=== PATIENT | male | born 1955 | race Caucasian/White ===

== ENCOUNTER → 2016-12-03 | Outpatient (CLI) | payer MEDICAID ==
--- NOTE | 2016-12-03 20:58 | MR ---
EXAMINATION TYPE: MR lspine/sacrum wo con DATE OF EXAM: 12/03/2016 COMPARISON: CT abdomen pelvis 02/26/2016 HISTORY: Herniated disc, back pain TECHNIQUE: Multiplanar, multisequence imaging of the lumbar spine and sacrum is performed without IV contrast. FINDINGS: Lumbar vertebral bodies show preserved height. There is multilevel spondylosis, endplate di scogenic marrow signal change. Loss of disc height and signal is greatest at L5-S1 but also present t o lesser extent L4-5, L3-4. The conus is at L1-2 and shows an unremarkable appearance. Grade 1 raven listhesis present at L4-5. Mild spinal curvature is noted centered at lumbosacral junction. Small cor tical cysts associated with the right kidney. There may be a parapelvic cyst within the left kidney. L5-S1: Facet arthropathy changes present. Circumferential extension of endplate disc complex results in foraminal encroachment greater on the left. Small central posterior disc bulge causes mild anterio r mass effect on the thecal sac. Vacuum disc phenomenon present. Somewhat asymmetric appearance to th e lamina is likely congenital. L4-5: Listhesis contributes to cause some foraminal encroachment which is mild. Facet arthropathy david nges present with hypertrophy of the ligamentum flavum encroaches somewhat on the right lateral reces s. Posterior broad-based disc bulge causes only slight anterior mass effect on the thecal sac. Some i ncreased signal at the lateral aspect of the disc at L4-5 could represent a small annular tear latera lly towards the left. L3-4: Facet arthropathy change and hypertrophy of the ligamentum flavum encroaches mildly on the late ral recesses. Circumferential posterior disc bulge causes only minimal anterior mass effect on the th ecal sac. No significant central stenosis. L2-3: Posterior broad-based disc bulge causes minimal anterior mass effect on the thecal sac. Facet a rthropathy change with hypertrophy of the ligamentum flavum encroaches somewhat on the lateral recess es. No significant central stenosis. L1-2: Mild facet arthropathy changes present. No disc herniation or central stenosis. T12-L1: Unremarkable. IMPRESSION: Degenerative disc disease and facet arthropathy. Additional findings above. Sacrum MRI: Bone marrow signal is maintained. Alignment is maintained. No significant canal stenosis. Degenerative disc changes noted at the lower lumbar spine, lumbosacral junction. The prostate is enl arged and shows an inferior impression on the bladder. Bladder shows a somewhat thickened, trabeculat ed appearance possibly due to chronic bladder outlet obstruction. Wall thickening within the rectosig moid colon could be due to muscular hypertrophy. Sacroiliac joints are intact, no significant degener ative changes evident. impression: Nonspecific findings described above. Degenerative disc disease. Suspect prostate hypertr ophy and chronic lateral outlet obstruction.
== END ==
LOC: RADMRIMAIN 15:27
PROVIDERS: ATTEND Internal Medicine
DX: M51.36 Other intervertebral disc degeneration, lumbar region (principal); M46.86 Other specified inflammatory spondylopathies, lumbar region
CPT/HCPCS: 72148; 72195

== ENCOUNTER 2017-02-04 20:08 | Emergency (ER) | payer MEDICAID ==
[2017-02-04 20:14] VITALS: BP 112/78; PULSE 76; RESP 18; TEMP 97
--- NOTE | 2017-02-04 20:41 | ED ---
Upper Extremity HPI - General Chief Complaint: Extremity Injury, Upper Stated Complaint: Fall-Wrist Injury Time Seen by Provider: 02/04/17 20:18 Source: patient Mode of arrival: ambulatory Limitations: no limitations - History of Present Illness Initial Comments: This 61-year-old white male presents with a complaint of right hand and wrist injury as well as a left hamstring injury. He states that he was playing tennis. He apparently went for the ball and pulled his left hamstring and then fell to the ground. He broke his fall with his right hand. He now has pain over his lateral metacarpals of his right hand. This occurred shortly prior to arrival. It is causing him some mild pain. He has some mild pain with movement of his wrist as well. He denies any other injuries. He is able to ambulate and bear weight without severe difficulty. No other complaints or modifying factors. - Related Data Home Medications Medication Instructions Recorded Confirmed No Known Home Medications [No 11/09/14 02/04/17 Known Home Medications] Allergies Allergy/AdvReac Type Severity Reaction Status Date / Time No Known Allergies Allergy Verified 02/04/17 20:28 Review of Systems ROS Statement: Those systems with pertinent positive or pertinent negative responses have been documented in the HPI. ROS Other: All systems not noted in ROS Statement are negative. Past Medical History Past Medical History: No Reported History History of Any Multi-Drug Resistant Organisms: None Reported Past Surgical History: Orthopedic Surgery Additional Past Surgical History / Comment(s): parathroidectomy, trigger finger release,r wrist surgery Past Anesthesia/Blood Transfusion Reactions: No Reported Reaction Past Psychological History: No Psychological Hx Reported Smoking Status: Never smoker Past Alcohol Use History: None Reported Past Drug Use History: None Reported General Exam Limitations: no limitations General appearance: alert, in no apparent distress Extremities exam: Present: tenderness (there is tenderness over the lateral right 3 metacarpals. There is mild swelling noted without any significant ecchymosis. There is some pain with extremes of motion of the right wrist. Strength is somewhat limited due to pain.), other (there also is some tenderness noted to the left hamstring. He is able to ambulate without any significant difficulty. Strength appears intact to lower extremities.). Absent : joint swelling Neurological exam: Present: alert, oriented X3. Absent: motor sensory deficit Psychiatric exam: Present: normal affect, normal mood Skin exam: Present: intact. Absent: rash Course Vital Signs 11/14/17 20:12 Temperature 97 F L Pulse Rate 76 Respiratory 18 Rate Blood Pressure 112/78 O2 Sat by Pulse 98 Oximetry Medical Decision Making - Medical Decision Making the patient was seen and examined. All diagnostics were reviewed.The patient had an x-ray of his right hand and right wrist. This does show a right fifth carpometacarpal dislocation. The case was discussed with Dr. Jose Kay and he does present to the ER to evaluate the patient. He did obtain another view and agrees with the diagnosis and reduces his right fifth metacarpal. He places him in a splint and is subsequently discharged. Is also felt as though he does have a left hamstring strain but this does not appear to be severe and is able to ambulate without any difficulty. He refuses any pain medications. He does not want any discharge instructions. He states that he will take some Motrin if needed for pain. He apparently will be following up with orthopedics in 2 days for recheck. Disposition Clinical Impression: Dislocation of metacarpal joint, Hamstring strain Disposition: HOME SELF-CARE Condition: Good Referrals: Jocelin Menezes MD [Primary Care Provider] - 1-2 days Time of Disposition: 21:50
--- NOTE | 2017-02-04 20:42 | XR ---
EXAMINATION TYPE: XR hand complete RT DATE OF EXAM: 02/04/2017 COMPARISON: NONE HISTORY: Pain after a fall TECHNIQUE: 3 views FINDINGS: On the lateral view of the fifth metacarpal appears anteriorly dislocated at the carpometac arpal joint. I see no fracture line. IMPRESSION: There appears to be an anterior dislocation of the fifth carpometacarpal joint. Mild oste oarthritis is noted at the first carpometacarpal joint.
--- NOTE | 2017-02-04 20:44 | XR ---
EXAMINATION TYPE: XR wrist complete RT DATE OF EXAM: 02/04/2017 COMPARISON: NONE HISTORY: Pain after a fall TECHNIQUE: 4 views FINDINGS: On the lateral view the base of the fifth metacarpal appears to be in somewhat anterior pos ition. I see no fracture line. There is spurring at the first carpometacarpal joint. The carpal bones appear intact. IMPRESSION: Possible anterior dislocation of the fifth carpometacarpal joint.
--- NOTE | 2017-02-04 21:43 | XR ---
EXAMINATION TYPE: XR hand complete RT DATE OF EXAM: 02/04/2017 COMPARISON: Today HISTORY: Postreduction TECHNIQUE: 3 views FINDINGS: I see no fracture nor dislocation. There is anatomic reduction of the fifth carpometacarpal joint compared to the previous exam. IMPRESSION: Anatomic reduction.
== END 2017-02-04 21:57 | disposition home or self-care (01) ==
LOC: EC 20:08
DX: S63.054A Dislocation of other carpometacarpal joint of right hand, initial encounter (principal); S76.312A Strain of muscle, fascia and tendon of the posterior muscle group at thigh level, left thigh, initial encounter; W18.39XA Other fall on same level, initial encounter; X50.9XXA Other and unspecified overexertion or strenuous movements or postures, initial encounter; Y93.73 Activity, racquet and hand sports
CPT/HCPCS: 29125; 99283

== ENCOUNTER → 2018-05-04 | Outpatient (CLI) | payer MEDICAID ==
[2018-05-04 13:03] LABS: Basophils % (A) 0 %; Eosinophils # (A) 0.1 k/uL (0-0.7); Eosinophils % (A) 1 %; HCT 46.3 % (39.0-53.0); HGB 15.7 gm/dL (13.0-17.5); Lymphocytes # (A) 2.7 k/uL (1.0-4.8); Lymphocytes % (A) 44 %; MCH 32.1 pg (25.0-35.0); MCHC 33.9 g/dL (31.0-37.0); MCV 94.8 fL (80.0-100.0); Monocytes # (A) 0.4 k/uL (0-1.0); Monocytes % (A) 7 %; Neutrophils # (A) 2.8 k/uL (1.3-7.7); Neutrophils % (A) 46 %; Platelet Count 211 k/uL (150-450); RBC 4.88 m/uL (4.30-5.90); RDW 12.3 % (11.5-15.5); WBC 6.1 k/uL (3.8-10.6)
[2018-05-04 14:07] LABS: Erythrocyte Sedimentation Rate 2 mm/hr (0-15)
[2018-05-04 20:11] LABS: Vitamin D 25 Hydroxy 15.6 ng/mL (30.0-100.0)
[2018-05-04 22:11] LABS: Albumin 4.7 g/dL (3.80-4.90); Albumin/Globulin Ratio 1.96 (1.60-3.17); Anion Gap 9.7 mmol/L (4.00-12.00); Calcium 9.8 mg/dL (8.7-10.3); Carbon Dioxide 29.3 mmol/L (21.6-31.8); Globulin 2.4 g/dL (1.6-3.3); Phosphorus 4.1 mg/dL (2.4-5.1); Potassium 4.3 mmol/L (3.5-5.5); Total Bilirubin 0.7 mg/dL (0.3-1.2); Total Protein 7.1 g/dL (6.2-8.2)
[2018-05-04 22:19] LABS: T4, Free (Free Thyroxine) 1.3 ng/dL (0.80-1.80)
[2018-05-04 22:54] LABS: Hemoglobin A1C 5.2 % (4.0-6.0)
== END | disposition home or self-care (01) ==
LOC: LABWHC1 12:00
PROVIDERS: ATTEND Internal Medicine
DX: Z00.00 Encounter for general adult medical examination without abnormal findings (principal); R53.83 Other fatigue; R53.81 Other malaise; R63.5 Abnormal weight gain; R21 Rash and other nonspecific skin eruption; M25.50 Pain in unspecified joint; Z12.5 Encounter for screening for malignant neoplasm of prostate
CPT/HCPCS: 84439; 80061; 80053; 85652; 80069; 84443; 85025; 86141; 82306; 86038; 84403; 83036; 36415; G0103; 86431

== ENCOUNTER → 2018-08-05 | Outpatient (CLI) | payer MEDICAID ==
--- NOTE | 2018-08-05 16:37 | CT ---
EXAMINATION TYPE: CT brain w con DATE OF EXAM: 08/05/2018 COMPARISON: None. HISTORY: Contusion RT side caodaism. Pt tripped Friday, hitting head and experienced some LOC. Sx heada ariel since event. CT DLP: 1147 mGycm Automated Exposure Control for Dose Reduction was Utilized. TECHNIQUE: CT scan of the head is performed with IV contrast patient injected with 100 mL of Isovue 3 00. FINDINGS: The ventricles and sulci are within normal limits in size. Postcontrast images show no sprague spicious enhancing intraparenchymal mass. Julio-white matter differentiation is maintained. The globes are intact and the visualized sinuses are clear. The calvarium is intact. IMPRESSION: Unremarkable study.
== END ==
LOC: RADCTMAIN 15:19
PROVIDERS: ATTEND Internal Medicine Critical Care Medicine
DX: S00.93XA Contusion of unspecified part of head, initial encounter (principal)
CPT/HCPCS: 70460; Q9967

== ENCOUNTER → 2019-01-13 | Outpatient (CLI) | payer MEDICAID ==
--- NOTE | 2019-01-13 16:33 | CT ---
EXAMINATION TYPE: CT abdomen pelvis wo con DATE OF EXAM: 01/13/2019 HISTORY: right flank pain, hx of stones CT DLP: 928 mGycm. Automated Exposure Control for Dose Reduction was Utilized. TECHNIQUE: CT scan of the abdomen and pelvis is performed without oral or IV contrast. COMPARISON: CT abdomen and pelvis February 26, 2016 FINDINGS: Within the limitations of a non-contrast study, the following observations are made. LUNG BASES: No significant abnormality is appreciated. LIVER/GB: No significant abnormality is appreciated. PANCREAS: No significant abnormality is seen. SPLEEN: No significant abnormality is seen. ADRENALS: No significant abnormality is seen. KIDNEYS: Single 1 to 2 mm calculus right kidney axial image 38 operative midpole level. There is 2 to 3 mm obstructing proximal right ureter calculus axial image 63 and coronal image 42 causing mild rig ht-sided hydronephrosis. No left-sided renal calculi or hydronephrosis. No intraluminal calculi poorl y distended bladder. [id number] concentric wall thickening thought present. BOWEL: No significant abnormality is seen. GENITAL ORGANS: Prostate gland enlargement with bulging on bladder base and with central calcificatio ns. Suspected BPH with underlying bladder outlet obstruction. Correlate clinically. LYMPH NODES: No greater than 1cm abdominal or pelvic lymph nodes are appreciated. OSSEOUS STRUCTURES: Mild to moderate narrowing both hip joints. Moderate to severe narrowing with vac uum disc phenomenon lumbosacral junction. OTHER: No significant additional abnormality is seen. IMPRESSION: There is 2 to 3 mm calculus proximal right ureter causing mild right-sided hydronephrosis .
== END | disposition home or self-care (01) ==
LOC: RADCTMAIN 16:04
PROVIDERS: ATTEND Internal Medicine Critical Care Medicine
DX: N13.2 Hydronephrosis with renal and ureteral calculous obstruction (principal)
CPT/HCPCS: 74176

== ENCOUNTER → 2019-01-18 | Outpatient (CLI) | payer MEDICAID ==
[2019-01-18 13:46] LABS: Ionized Calcium 5.1 mg/dL (4.5-5.3)
[2019-01-18 18:38] LABS: African American GFR (CKD) 91.8 (60.0-200.0); Albumin 4.4 g/dL (3.80-4.90); Albumin/Globulin Ratio 2.1 (1.60-3.17); Calcium 9.6 mg/dL (8.7-10.3); Globulin 2.1 g/dL (1.6-3.3); Total Bilirubin 0.5 mg/dL (0.2-1.2); Total Protein 6.5 g/dL (6.2-8.2)
== END | disposition home or self-care (01) ==
LOC: LABWHC1 13:00
PROVIDERS: ATTEND Internal Medicine Critical Care Medicine
DX: E21.3 Hyperparathyroidism, unspecified (principal)
CPT/HCPCS: 36415; 80053; 82330; 83970

== ENCOUNTER → 2020-04-10 | Outpatient (CLI) | payer MEDICAID | END | disposition home or self-care (01) | LOC: LABWHC1 16:00 | PROVIDERS: ATTEND Internal Medicine | DX: Z20.822 Contact with and (suspected) exposure to COVID-19 (principal) | CPT/HCPCS: 36415; 86769 ==

== ENCOUNTER 2021-03-02 10:52 | Day surgery (SDC) | payer MEDICAID ==
[2021-03-01 11:35] VITALS: BMI 27.8
[~2021-03-02 10:52] MED LIST: LACTATED RINGERS 1,000 ML IV SCH
[2021-03-02 11:23] VITALS: TEMP 98.8
[2021-03-02] MEDS ORDERED: LIDOCAINE 1% (10MG/ML) FOR IV START INTRADERMA ONE (11:33)
[2021-03-02] MEDS ORDERED: MIDAZOLAM 2 MG/2 ML VIAL IVP ONE (11:46)
[2021-03-02] MEDS ORDERED: .fentaNYL (PF) 50 MCG/ML 2 ML AMP ONE (12:42)
[2021-03-02] MEDS ORDERED: PROPOFOL 10 MG/ML 20 ML VIAL IV ONE (12:42)
[2021-03-02] MEDS ORDERED: MIDAZOLAM 2 MG/2 ML VIAL ONE (12:42)
[2021-03-02] MEDS ORDERED: LIDOCAINE 1% INJ 10MG/ML (20 ML MDV) ONE (12:42)
--- NOTE | 2021-03-02 13:11 | P.PCN ---
Date of Procedure: 03/02/21 Procedure(s) Performed: Brief history: Patient is a pleasant 65-year-old white male scheduled for an elective upper endoscopy as well as colonoscopy as a part of evaluation of intermittent GERD and screening for colon cancer Procedure performed: Esophagogastroduodenoscopy with biopsy Colonoscopy Preoperative diagnosis: GERD Screening for colon cancer Anesthesia: MAC Procedure: After informed consent was obtained from the patient was brought into the endoscopy unit and IV sedation was administered by anesthesia under continuous monitoring. Initially upper endoscopy was done. The Olympus GF 160 video endoscope was inserted inserted into the mouth and esophagus intubated without any difficulty and was gradually advanced into the stomach and duodenum and carefully examined. The bulb and second part of the duodenum appeared normal. The scope was then withdrawn into the stomach adequately insufflated with air and upon careful examination the antrum had scattered erosions and biopsies were done from this area. The body, cardia and fundus appeared normal. The scope was then withdrawn into the esophagus. The GE junction was located at 40 cm to the incisors. It appeared regular with one superficial erosion consistent with LA grade A reflux esophagitis. Rest of the esophagus appeared normal. Patient tolerated the procedure well. At this time the patient continued to remain sedation. Initial digital rectal examination was normal. Olympus CF 160 video colonoscope was then inserted into the rectum and gradually advanced to the cecum without any difficulty. Careful examination was performed as the scope was gradually being withdrawn. The prep was excellent. The cecum, ascending colon, transverse colon, descending colon, sigmoid colon and rectum appeared normal. Retroflexion was performed in the rectum and small internal hemorrhoids were noted. Patient tolerated the procedure well. Impression: 1. Upper endoscopy revealed scattered antral erosions and LA grade A reflux esophagitis 2. Colonoscopy was within normal limits with colitis or colorectal neoplasia. Small Internal hemorrhoids noted. Recommendations: Findings of this examination were discussed with the patient as well as his family. He was advised to follow with the biopsy results. He will continue with [id number] acid reducers as needed. He was advised to have a repeat screening colonoscopy in 10 years.
[2021-03-02 13:43] VITALS: BP 111/76; PULSE 87; RESP 15
== END 2021-03-02 13:48 | disposition home or self-care (01) ==
LOC: ORWHC2ENDO 10:52
PROVIDERS: ATTEND Internal Medicine Gastroenterology
DX: Z12.11 Encounter for screening for malignant neoplasm of colon (principal); K21.00 Gastro-esophageal reflux disease with esophagitis, without bleeding; K64.8 Other hemorrhoids
CPT/HCPCS: 88305; 43239; J2250; J2001; J3010; J2704; G0121

== ENCOUNTER → 2022-01-18 | Outpatient (CLI) | payer MEDICAID ==
[2022-01-18 10:40] LABS: Basophils # (A) 0.01 X 10*3/uL (0.00-0.10); Basophils % (A) 0.2 %; Eosinophils # (A) 0.18 X 10*3/uL (0.04-0.35); Eosinophils % (A) 3.4 %; HCT 46.4 % (39.6-50.0); HGB 15.4 g/dL (13.0-17.0); Immature Grans, Automated 0.2 %; Lymphocytes # (A) 2.17 X 10*3/uL (0.90-5.00); Lymphocytes % (A) 40.7 %; MCH 32.4 pg (27.0-32.0); MCHC 33.2 g/dL (32.0-37.0); MCV 97.7 fL (80.0-97.0); Mean Platelet Volume 10.9 fL (9.5-12.2); Monocytes # (A) 0.43 X 10*3/uL (0.20-1.00); Monocytes % (A) 8.1 %; NRBC Per 100 WBC 0 /100 WBCS (0.0-0.0); Neutrophils # (A) 2.53 X 10*3/uL (1.80-7.70); Neutrophils % (A) 47.4 %; Platelet Count 210 X 10*3/uL (140-440); RBC 4.75 X 10*6/uL (4.40-5.60); RDW 11.8 % (11.5-14.5); WBC 5.33 X 10*3/uL (4.50-10.00)
[2022-01-18 11:01] LABS: Hepatitis A Antibody IgM Nonreactive (Nonreactive); Hepatitis B Core IgM Nonreactive (Nonreactive); Hepatitis B Surface Antigen Nonreactive (Nonreactive); Hepatitis C IgG Antibody Nonreactive (Nonreactive)
[2022-01-18 11:24] LABS: C Reactive Protein <0.30 mg/dL (0.00-0.80); Glucose 97 mg/dL (70-110)
== END | disposition home or self-care (01) ==
LOC: LABWHC1 07:14
PROVIDERS: ATTEND Internal Medicine
DX: R53.83 Other fatigue (principal); E55.9 Vitamin D deficiency, unspecified
CPT/HCPCS: 36415; 80053; 80061; 80074; 82306; 82947; 83036; 84153; 84403; 84439; 84443; 85025; 86140

== ENCOUNTER → 2022-01-23 | Outpatient (CLI) | payer MEDICAID ==
--- NOTE | 2022-01-23 16:00 | MR ---
EXAMINATION TYPE: MR knee LT wo con DATE OF EXAM: 01/23/2022 COMPARISON: None HISTORY: L knee pain TECHNIQUE: Multiplanar, multisequence imaging of the left knee is performed without IV contrast. FINDINGS: MEDIAL MENISCUS: Complex tear body and posterior horn medial meniscus with a bucket-handle component. There also appears to be tear involving the anterior horn of the medial meniscus. LATERAL MENISCUS: Anterior and posterior horns are intact without tear. CRUCIATE LIGAMENTS: Abnormal increased signal involving the ACL which may reflect strain and/or parti al tear. No evidence for rupture. PCL is intact. COLLATERAL LIGAMENTS: The medial collateral ligament and lateral collateral ligament complex are inta ct and unremarkable. EXTENSOR MECHANISM: Visualized quadriceps and patellar tendons are intact. EFFUSION: No significant suprapatellar joint effusion. POPLITEAL CYST: No popliteal/hollingsworth cyst. TRICOMPARTMENT SPACES: Moderate narrowing medial tibiofemoral joint space with subchondral linear inc reased signal. CARTILAGE: Thinning although intact. BONE MARROW SIGNAL: No focal abnormal marrow signal is appreciated. OTHER: No additional significant abnormality is appreciated. IMPRESSION: 1 complex tear medial meniscus as discussed above. Bucket-handle component. 2. Strain and/or partial tear ACL without rupture.
== END | disposition home or self-care (01) ==
LOC: RADMRIMAIN 13:01
PROVIDERS: ATTEND Orthopaedic Surgery
DX: S83.212A Bucket-handle tear of medial meniscus, current injury, left knee, initial encounter (principal)

== ENCOUNTER → 2022-07-10 | Outpatient (CLI) | payer MEDICAID ==
--- NOTE | 2022-07-11 06:31 | MR ---
EXAMINATION TYPE: MR brain and iac wo/w con DATE OF EXAM: 07/10/2022 COMPARISON: CT brain August 05, 2018 HISTORY: Hearing loss and tinnitus of left ear for 2 weeks. TECHNIQUE: Multiplanar, multisequence images of the brain and brainstem along with internal auditory canals are all performed without and with IV contrast, utilizing 8 mL intravenous Gadavist . FINDINGS: Diffusion weighted images demonstrate no evidence of a recent infarct or other diffusion ab normality. There is mild ventricular and sulcal prominence. There are scattered foci of T2 hyperinte nsity seen throughout the white matter bilaterally. Approximately 30 small scattered lesions are seen . Lesions are nonspecific in appearance and distribution. T2 Star weighted images show no suspicious intraparenchymal blood products. Midline structures demonstrate normal morphology. The craniocervical junction appears within normal limits. Post contrast images demonstrate no abnormal enhancement. The dural venous sinuses appear pa tent. Mild mucosal thickening involving ethmoid sinuses bilaterally. Globes are intact bilaterally. No suspicious fluid signal in the mastoid air cells bilaterally. The vestibulocochlear complexes are symmetric and within normal limits. No abnormal enhancing cerebellopontine angle mass is seen bilater ally. IMPRESSION: 1. No suspicious finding to account for patient's symptoms of hearing loss and tinnitus in the left e ar. 2. There is background mild diffuse cerebral atrophy and mild to moderate probable chronic small vess el ischemic change and mild ethmoid sinusitis noted. No abnormal enhancement seen.
== END | disposition home or self-care (01) ==
LOC: RADMRIMAIN 18:05
PROVIDERS: ATTEND Otolaryngology
DX: G31.9 Degenerative disease of nervous system, unspecified (principal); H93.3X2 Disorders of left acoustic nerve; H93.12 Tinnitus, left ear
CPT/HCPCS: 70553; A9585

== ENCOUNTER → 2023-03-13 | Outpatient (CLI) | payer MEDICAID ==
[2023-03-13 11:50] LABS: Basophils % (A) 0 %; Eosinophils # (A) 0.1 k/uL (0-0.7); Eosinophils % (A) 1 %; HGB 15.7 gm/dL (13.0-17.5); Lymphocytes # (A) 2.1 k/uL (1.0-4.8); Lymphocytes % (A) 42 %; MCH 32.7 pg (25.0-35.0); MCHC 32.7 g/dL (31.0-37.0); MCV 100.2 fL (80.0-100.0); Mean Platelet Volume 9.2; Monocytes # (A) 0.3 k/uL (0-1.0); Monocytes % (A) 7 %; Neutrophils # (A) 2.4 k/uL (1.3-7.7); Neutrophils % (A) 48 %; Platelet Count 219 k/uL (150-450); RBC 4.79 m/uL (4.30-5.90); RDW 12.5 % (11.5-15.5)
[2023-03-13 12:15] LABS: ALT 27 U/L (4-49); AST 34 U/L (17-59); African American GFR (CKD) 76 (>60 ml/min/1.73 sqM); Albumin 4.5 g/dL (3.5-5.0); Albumin/Globulin Ratio 1.6; Alkaline Phosphatase 60 U/L (38-126); Anion Gap 9 mmol/L; Blood Urea Nitrogen 22 mg/dL (9-20); C Reactive Protein <0.5 mg/dL (<1.0); Calcium 9.3 mg/dL (8.4-10.2); Carbon Dioxide 27 mmol/L (22-30); Chloride 102 mmol/L (98-107); Globulin 2.9 g/dL; Glucose 87 mg/dL (74-99); Non-African American GFR(CKD) 66 (>60 ml/min/1.73 sqM); Potassium 4.5 mmol/L (3.5-5.1); Sodium 138 mmol/L (137-145); Total Bilirubin 0.8 mg/dL (0.2-1.3); Total Protein 7.4 g/dL (6.3-8.2)
[2023-03-13 12:29] LABS: T4, Free (Free Thyroxine) 1.34 ng/dL (0.78-2.19)
[2023-03-13 21:56] LABS: Chol/HDL Ratio 2.94 Ratio; LDL Cholesterol,Calculated 123.8 mg/dL (0.0-131.0); VLDL Calculation 15.98 mg/dL (5.00-40.00)
[2023-03-13 23:36] LABS: PSA Annual Screen 0.751 ng/mL (0.000-4.000)
== END | disposition home or self-care (01) ==
LOC: LABWHC1 11:12
PROVIDERS: ATTEND Internal Medicine Critical Care Medicine
DX: Z12.5 Encounter for screening for malignant neoplasm of prostate (principal); G47.00 Insomnia, unspecified; R53.83 Other fatigue
CPT/HCPCS: 84439; 80061; 80053; 82533; 84443; 85025; 86140; 84403; 82306; 83036; 36415; G0103

== ENCOUNTER → 2023-10-24 | Outpatient (CLI) | payer MEDICAID ==
--- NOTE | 2023-10-24 08:28 | XR ---
EXAMINATION TYPE: XR wrist complete RT DATE OF EXAM: 10/24/2023 8:16 AM CLINICAL INDICATION:Male, 67 years old with history of M25.53 Pain in wrist; [facility] COMPARISON: 02/04/2017 TECHNIQUE: XR wrist complete RT; examined in the Frontal, navicular, lateral, and oblique. FINDINGS: No acute osseous pathology, joint dislocation, or joint effusion. No evidence of any soft tissue swelling is seen. Multifocal degeneration changes of the joints of the hand and wrist minimal osteophyte formation and joint space narrowing. IMPRESSION: 1. No acute osseous pathology. 2. Mild multifocal osteoarthrosis.
== END | disposition home or self-care (01) ==
LOC: RADXRMAIN 07:41
PROVIDERS: ATTEND Internal Medicine Critical Care Medicine
DX: M19.031 Primary osteoarthritis, right wrist (principal)

== ENCOUNTER → 2024-03-26 | Outpatient (CLI) | payer MEDICAID ==
[2024-03-26 15:31] LABS: HCT 45.7 % (39.6-50.0); HGB 14.9 g/dL (13.0-17.0); MCH 32.3 pg (27.0-32.0); MCHC 32.6 g/dL (32.0-37.0); MCV 98.9 FL (80.0-97.0); Mean Platelet Volume 11.5 FL (9.5-12.2); NRBC Per 100 WBC 0 X 10*3/uL (0.00-0.01); Platelet Count 199 X 10*3/uL (140-440); RBC 4.62 X 10*6/uL (4.40-5.60); RDW 12.5 % (11.5-14.5); WBC 5.83 X 10*3/uL (4.50-10.00)
[2024-03-26 16:05] LABS: ALT 32 U/L (10-49); AST 28 U/L (14-35); Albumin 4.4 g/dL (3.8-4.9); Albumin/Globulin Ratio 1.83 Ratio (1.60-3.17); Alkaline Phosphatase 54 U/L (41-126); BUN/Creat Ratio 24.45 Ratio (12.00-20.00); Blood Urea Nitrogen 26.9 mg/dL (9.0-27.0); Calcium 9.6 mg/dL (8.7-10.3); Carbon Dioxide 26.1 mmol/L (21.6-31.8); Chloride 106 mmol/L (96-109); Chol/HDL Ratio 2.71 Ratio; Globulin 2.4 g/dL (1.6-3.3); Glucose 95 mg/dL (70-110); LDL Cholesterol,Calculated 110.8 mg/dL (0.0-131.0); Potassium 5.8 mmol/L (3.5-5.5); Sodium 141 mmol/L (135-145); T4, Free (Free Thyroxine) 1.33 ng/dL (0.80-1.80); Total Bilirubin 0.3 mg/dL (0.3-1.2); Total Protein 6.8 g/dL (6.2-8.2); VLDL Calculation 9.02 mg/dL (5.00-40.00)
== END | disposition home or self-care (01) ==
LOC: LABWHC1 07:51
PROVIDERS: ATTEND Internal Medicine Critical Care Medicine
DX: E83.52 Hypercalcemia (principal)
CPT/HCPCS: 36415; 80053; 80061; 82306; 83036; 84153; 84403; 84439; 84443; 85027

== ENCOUNTER 2024-04-25 05:15 | Emergency (ER) | payer MEDICAID ==
[2024-04-25] MEDS: KETOROLAC 15 MG/ML 1 ML VIAL IVP STA (05:48)
[2024-04-25] MEDS: methylPREDNISolone SOD SUCCI 125 MG/2 ML VIAL IV STA ×2 (05:48→07:39)
[2024-04-25] MEDS: ACETAMINOPHEN TAB 500 MG TAB PO STA (05:49)
--- NOTE | 2024-04-25 05:52 | ED ---
General Adult HPI - General Source: patient Mode of arrival: ambulatory Limitations: no limitations <Samantha Sparks - Last Filed: 04/25/24 06:38> <Dudley Cortez - Last Filed: 04/25/24 08:37> - General Chief complaint: Upper Respiratory Infection Stated complaint: fever,chills - History of Present Illness Initial comments: Patient is a pleasant 68-year-old gentleman past medical history of GERD presenting today for shortness of breath, cough, headache and fevers x 2 days. 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 Has been taking tylenol and motrin at home for his symptoms, last dose of tylenol lsat night at 9 PM. He endorses shortness of breath and burning chest pain across the front of his chest as well as chest congestion and sore throat. Denies abdominal pain, nausea, vomiting, diarrhea, melena, hematochezia. Denies other medical problems. (Samantha Spraks) - Related Data Home Medications Medication Instructions Recorded Confirmed No Known Home Medications 11/09/14 03/02/21 Allergies Allergy/AdvReac Type Severity Reaction Status Date / Time No Known Allergies Allergy Verified 04/25/24 05:19 Review of Systems ROS Other: All systems not noted in ROS Statement are negative. <Samantha Sparks - Last Filed: 04/25/24 06:38> ROS Other: All systems not noted in ROS Statement are negative. <Dudley Cortez - Last Filed: 04/25/24 08:37> ROS Statement: Those systems with pertinent positive or pertinent negative responses have been documented in the HPI. Past Medical History Past Medical History: GERD/Reflux History of Any Multi-Drug Resistant Organisms: None Reported Past Surgical History: Orthopedic Surgery Additional Past Surgical History / Comment(s): parathroidectomy, trigger finger release,r wrist surgery, COLONOSCOPY Past Anesthesia/Blood Transfusion Reactions: No Reported Reaction Past Psychological History: No Psychological Hx Reported Smoking Status: Never smoker Past Alcohol Use History: None Reported Past Drug Use History: None Reported - Past Family History Mother Family Medical History: No Reported History <Samantha Sparks - Last Filed: 04/25/24 06:38> General Exam Limitations: no limitations <Samantha Sparks - Last Filed: 04/25/24 06:38> - General Exam Comments Initial Comments: PE: CONSTITUTIONAL: No apparent distress, ill appearing, nontoxic SKIN: Warm, dry, no jaundice, hives or petechiae EYES: Pupils are equally round, extraocular movements intact without nystagmus, clear conjunctiva, non-icteric sclera HENT: Normocephalic, atraumatic, moist mucus membranes, oropharynx clear without exudates NECK: , Full range of motion, normal appearance, cervical lymphadenopathy PULMONARY: Rales and rhonchi in mid/lower left lung price without wheezes, crackles or stridor, normal excursion, no accessory muscle use CARDIOVASCULAR: Regular rate, rhythm, normal S1 and S2. No appreciated murmurs, rubs or gallops. Strong radial pulses with intact distal perfusion. No lower extremity edema GASTROINTESTINAL: Soft, active bowel sounds throughout, non-tender, non- distended, no palpable masses, no rebound or guarding. No hepatosplenomegaly MUSCULOSKELETAL: Extremities have no gross deformity, no edema, redness, or sw elling. No calf swelling NEUROLOGIC:_a/o x 3, GCS 15, normal mentation and speech. Moves all extremities x 4 without motor or sensory deficit PSYCHIATRIC:_normal mood and affect, thought process is clear and linear (Samantha Sparks) Course Vital Signs 04/25/24 04/25/24 04/25/24 05:16 06:11 06:22 Temperature 100.6 F H Pulse Rate 111 H 94 Respiratory 18 22 18 Rate Blood Pressure 115/67 127/64 O2 Sat by Pulse 98 100 Oximetry 04/25/24 04/25/24 06:31 07:08 Temperature 100.9 F H Pulse Rate 93 Respiratory 20 Rate Blood Pressure 117/72 O2 Sat by Pulse 99 Oximetry EKG Findings - EKG Comments: EKG Findings:: Sinus tachycardia, rate [address] interval 156 ms QT/QTc 329/388 ms, left axis deviation, no ST elevations or depressions, no arrhythmia no STEMI <Samantha Sparks - Last Filed: 04/25/24 06:38> Medical Decision Making - Lab Data Result diagrams: 04/25/24 05:51 04/25/24 05:51 <Samantha Sparks - Last Filed: 04/25/24 06:38> - Lab Data Result diagrams: 04/25/24 05:51 04/25/24 05:51 <Dudley Cortez - Last Filed: 04/25/24 08:37> - Medical Decision Making Was pt. sent in by a medical professional or institution (, [facility], [employer], urgent care, hospital, or [facility]...) When possible be specific @ -[No] Did you speak to anyone other than the patient for history (EMS, parent, family, police, friend...)? What history was obtained from this source @ -[No] Did you review nursing and triage notes (agree or disagree)? Why? @ -[I reviewed nursing and triage notes] Were old charts reviewed (outside hosp., previous admission, EMS record, old EKG, old radiological studies, urgent care reports/EKG's, [facility] records)? Report findings @ -[Medical records reviewed] Differential Diagnosis (chest pain, altered mental status, abdominal pain women, abdominal pain men, vaginal bleeding, weakness, fever, dyspnea, syncope, headache, dizziness, GI bleed, back pain, seizure, CVA, palpatations, mental health, musculoskeletal)? Differential Dyspnea: Coronary syndrome, arrhythmia, tamponade, pulmonary embolism, pneumonia, pneumothorax, pulmonary effusion, viral infection, anemia, neuromuscular, this is not meant to be an all-inclusive list. EKG interpreted by me (3pts min.). @ -[As above] X-rays interpreted by me (1pt min.). @On my review of patient's chest x-ray I see no cardiomegaly, consolidations or pleural effusions CT interpreted by me (1pt min.). @ -[None done] U/S interpreted by me (1pt. min.). @ -[None done] What testing was considered but not performed or refused? (CT, X-rays, U/S, labs)? Why? @ -[None] What meds were considered but not given or refused? Why? @ -[None] Did you discuss the management of the patient with other professionals (professionals i.e. , [facility], [employer], lab, RT, psych nurse, social work nurse, tipple operator, teacher, freedom of information officer, director of casework)? Give summary @ -[No] Was smoking cessation discussed for >3mins.? @ -[No] Was critical care preformed (if so, how long)? @ -[No] Were there social determinants of health that impacted care today? How? (Homelessness, low income, unemployed, alcoholism, drug addiction, transportation, low edu. Level, literacy, decrease access to med. care, retirement, rehab)? @ -[No] Was there de-escalation of care discussed even if they declined (Discuss DNR or withdrawal of care, Hospice)? @ -[No] What co-morbidities impacted this encounter? (DM, HTN, Smoking, COPD, CAD, Cancer, CVA, ARF, Chemo, Hep., AIDS, mental health diagnosis, sleep apnea, morbid obesity)? @ -[None] Was patient admitted / discharged? Hospital course, mention meds given and route, prescriptions, significant lab abnormalities, going to OR and other pertinent info. @ -[hospital course] this is a pleasant 68-year-old gentleman no significant medical history presenting today for 2 days of fever, cough, shortness of breath headaches and chest pain. Patient mildly tachycardic and febrile on arrival with temp 100.6 degrees heart rate 111. Blood pressure within normal limits. Complete history physical exam were performed. Did show rhonchi rales in the left mid to lower lung field and cervical adenopathy. Discussed with patient chest x-ray and viral testing given high suspicion for viral cause of symptoms, with option of obtaining additional comprehensive labs, troponin, D dimer and EKG. Pt preferred addition of labs. Also states feels like he would benefit from steroids due to feeling of inflammation of chest and supplemental oxygen 2/2 shortness of breath. O2 applied, ordered 215 mg solumedrol. Given rhonchi and rales on auscultation of left lung wheeled will also administer Rocephin and azithromycin empirically, patient does meet SIRS criteria so will obtain lactic and blood culture and complete sepsis bundle with 30 cc/kg bolus. Ordered toradol and tylenol for fever. Labs and imaging reviewed. Grossly within normal limits. Abnormal values not concerning for acute pathology related to presenting complaint. Currently pending cephed testing. On reassessment pt states he feels so-so. Updated him to findings and pending viral panel. Denies additional needs at this time. Undiagnosed new problem with uncertain prognosis? @ -[No] Drug Therapy requiring intensive monitoring for toxicity (Heparin, Nitro, Insulin, Cardizem)? @ -[No] Were any procedures done? @ -[No] Diagnosis/symptom? @ -[default] Acute, or Chronic, or Acute on Chronic? @ -[default] Uncomplicated (without systemic symptoms) or Complicated (systemic symptoms)? @ -[default] Side effects of treatment? @ -[No] Exacerbation, Progression, or Severe Exacerbation? @ -[No] Poses a threat to life or bodily function? How? (Chest pain, [place], [place], pneumonia, PE, COPD, DKA, ARF, appy, cholecystitis, CVA, Diverticulitis, Homicidal, Suici khris, threat to staff... and all critical care pts) @ -[No] (Samantha Sparks) Patient's viral swab came back with influenza A. Patient was given Dilaudid for his discomfort and he felt much better after that he was also given 2 and half liters of fluid while in the emergency department. Diagnosis/symptom? @ -Influenza A Acute, or Chronic, or Acute on Chronic? @ -Acute Uncomplicated (without systemic symptoms) or Complicated (systemic symptoms)? @ -Complicated Side effects of treatment? @ -No Exacerbation, Progression, or Severe Exacerbation? @ -No Poses a threat to life or bodily function? How? (Chest pain, [place], [place], pneumonia, PE, COPD, DKA, ARF, appy, cholecystitis, CVA, Diverticulitis, Homicidal, Suicidal, threat to staff... and all critical care pts) @ -No (Duldey Cortez) - Lab Data Lab Results 04/25/24 04/25/24 04/25/24 Range/Units 05:36 05:51 05:51 WBC 6.6 (3.8-10.6) k/uL RBC 4.85 (4.30-5.90) m/uL Hgb 15.7 (13.0-17.5) gm/dL Hct 48.1 (39.0-53.0) % MCV 99.3 (80.0-100.0) fL MCH 32.4 (25.0-35.0) pg MCHC 32.7 (31.0-37.0) g/dL RDW 12.3 (11.5-15.5) % Plt Count 137 L (150-450) k/uL MPV 8.6 Neutrophils % 79 % Lymphocytes % 12 % Monocytes % 6 % Eosinophils % 1 % Basophils % 0 % Neutrophils # 5.2 (1.3-7.7) k/uL Lymphocytes # 0.8 L (1.0-4.8) k/uL Monocytes # 0.4 (0-1.0) k/uL Eosinophils # 0.1 (0-0.7) k/uL Basophils # 0.0 (0-0.2) k/uL PT 11.7 (10.0-12.5) sec INR 1.1 (<1.2) APTT 28.5 (22.0-30.0) sec D-Dimer 0.44 (<0.60) mg/L FEU Sodium (137-145) mmol/L Potassium (3.5-5.1) mmol/L Chloride (98-107) mmol/L Carbon Dioxide (22-30) mmol/L Anion Gap mmol/L BUN (9-20) mg/dL Creatinine (0.66-1.25) mg/dL Est GFR (CKD-EPI)AfAm (>60 ml/min/1.73 sqM) Est GFR (CKD-EPI)NonAf (>60 ml/min/1.73 sqM) Glucose (74-99) mg/dL Plasma Lactic Acid Master (0.7-2.0) mmol/L Calcium (8.4-10.2) mg/dL Total Bilirubin (0.2-1.3) mg/dL AST (17-59) U/L ALT (4-49) U/L Alkaline Phosphatase (38-126) U/L Troponin I (0.000-0.034) ng/mL NT-Pro-B Natriuret Pep pg/mL Total Protein (6.3-8.2) g/dL Albumin (3.5-5.0) g/dL Influenza Type A (PCR) Detected A (Not Detectd) Influenza Type B (PCR) Not Detected (Not Detectd) RSV (PCR) Not Detected (Not Detectd) SARS-CoV-2 (PCR) Not Detected (Not Detectd) 04/25/24 04/25/24 04/25/24 Range/Units 05:51 05:51 05:51 WBC (3.8-10.6) k/uL RBC (4.30-5.90) m/uL Hgb (13.0-17.5) gm/dL Hct (39.0-53.0) % MCV (80.0-100.0) fL MCH (25.0-35.0) pg MCHC (31.0-37.0) g/dL RDW (11.5-15.5) % Plt Count (150-450) k/uL MPV Neutrophils % % Lymphocytes % % Monocytes % % Eosinophils % % Basophils % % Neutrophils # (1.3-7.7) k/uL Lymphocytes # (1.0-4.8) k/uL Monocytes # (0-1.0) k/uL Eosinophils # (0-0.7) k/uL Basophils # (0-0.2) k/uL PT (10.0-12.5) sec INR (<1.2) APTT (22.0-30.0) sec D-Dimer (<0.60) mg/L FEU Sodium 135 L (137-145) mmol/L Potassium 4.8 (3.5-5.1) mmol/L Chloride 100 (98-107) mmol/L Carbon Dioxide 27 (22-30) mmol/L Anion Gap 8 mmol/L BUN 23 H (9-20) mg/dL Creatinine 1.02 (0.66-1.25) mg/dL Est GFR (CKD-EPI)AfAm 87 (>60 ml/min/1.73 sqM) Est GFR (CKD-EPI)NonAf 75 (>60 ml/min/1.73 sqM) Glucose 104 H (74-99) mg/dL Plasma Lactic Acid Master 0.9 (0.7-2.0) mmol/L Calcium 9.1 (8.4-10.2) mg/dL Total Bilirubin 0.9 (0.2-1.3) mg/dL AST 31 (17-59) U/L ALT 31 (4-49) U/L Alkaline Phosphatase 43 (38-126) U/L Troponin I <0.012 (0.000-0.034) ng/mL NT-Pro-B Natriuret Pep 205 pg/mL Total Protein 7.1 (6.3-8.2) g/dL Albumin 4.1 (3.5-5.0) g/dL Influenza Type A (PCR) (Not Detectd) Influenza Type B (PCR) (Not Detectd) RSV (PCR) (Not Detectd) SARS-CoV-2 (PCR) (Not Detectd) Disposition Is patient prescribed a controlled substance at d/c from ED?: No <Samantha - Last Filed: 04/25/24 06:38> Time of Disposition: 08:37 <Dudley Cortez - Last Filed: 04/25/24 08:37> Clinical Impression: Influenza A Disposition: HOME SELF-CARE Condition: Stable Instructions (If sedation given, give patient instructions): Influenza (ED) Additional Instructions: Every disease is a spectrum and a small chance still exists that a serious condition could develop, for this reason, please monitor yourself closely for new, changing or worsening symptoms, symptoms that do not improve within the next 72 hours, worsening/increasing sputum production with cough, worsening chest pain, difficulty in breathing, fever> 4 days, inability to tolerate/keep down fluids or your medications, inability to follow up with outpatient providers as instructed and should you experience these symptoms or should you have any further concerns for your wellbeing please return to the ED or call 911 immediately. PLEASE call your primary care physician as soon as possible to arrange / discuss plan for followup appointment. Appointment in the next 1-3 days is strongly encouraged if possible. PLEASE let us know here before you leave if there is anything further we can do to be of any assistance. Take care and feel Better! Referrals: None,Stated [Primary Care Provider] - 1-2 days
[2024-04-25] MEDS: SODIUM CHLORIDE 0.9% 1,000 ML IV STA (05:54)
[2024-04-25 06:05] LABS: Basophils % (A) 0 %; Eosinophils # (A) 0.1 k/uL (0-0.7); Eosinophils % (A) 1 %; HCT 48.1 % (39.0-53.0); HGB 15.7 gm/dL (13.0-17.5); Lymphocytes # (A) 0.8 k/uL (1.0-4.8); Lymphocytes % (A) 12 %; MCH 32.4 pg (25.0-35.0); MCHC 32.7 g/dL (31.0-37.0); MCV 99.3 fL (80.0-100.0); Mean Platelet Volume 8.6; Monocytes # (A) 0.4 k/uL (0-1.0); Monocytes % (A) 6 %; Neutrophils # (A) 5.2 k/uL (1.3-7.7); Neutrophils % (A) 79 %; Platelet Count 137 k/uL (150-450); RBC 4.85 m/uL (4.30-5.90); RDW 12.3 % (11.5-15.5); WBC 6.6 k/uL (3.8-10.6)
[2024-04-25 06:15] LABS: ALT 31 U/L (4-49); AST 31 U/L (17-59); African American GFR (CKD) 87 (>60 ml/min/1.73 sqM); Albumin 4.1 g/dL (3.5-5.0); Alkaline Phosphatase 43 U/L (38-126); Anion Gap 8 mmol/L; Blood Urea Nitrogen 23 mg/dL (9-20); Calcium 9.1 mg/dL (8.4-10.2); Carbon Dioxide 27 mmol/L (22-30); Chloride 100 mmol/L (98-107); Glucose 104 mg/dL (74-99); Non-African American GFR(CKD) 75 (>60 ml/min/1.73 sqM); Potassium 4.8 mmol/L (3.5-5.1); Sodium 135 mmol/L (137-145); Total Bilirubin 0.9 mg/dL (0.2-1.3); Total Protein 7.1 g/dL (6.3-8.2)
[2024-04-25 06:23] LABS: NT-Pro-B-Type Natriuretic Pept 205 pg/mL
[2024-04-25] MEDS: AZITHROMYCIN 500 MG in SODIUM CHLORIDE 0.9% 250 ML IVPB STA (06:29)
[2024-04-25 06:33] LABS: INR 1.1 (<1.2); Partial Thromboplastin Time 28.5 sec (22.0-30.0); Prothrombin Time 11.7 sec (10.0-12.5)
[2024-04-25] MEDS: SODIUM CHLORIDE 0.9% 1,000 ML IV ONE (06:55)
--- NOTE | 2024-04-25 07:12 | XR ---
EXAMINATION TYPE: XR chest 2V DATE OF EXAM: 04/25/2024 6:08 AM COMPARISON: Chest radiographs from 12/12/2023 TECHNIQUE: XR chest 2V Frontal and lateral views of the chest. CLINICAL INDICATION:Male, 68 years old with history of difficulty breathing; FINDINGS: Lungs/Pleura: There is no evidence of pleural effusion, focal consolidation, or pneumothorax. Pulmonary vascularity: Unremarkable. Heart/mediastinum: Cardiomediastinal silhouette is unremarkable. Musculoskeletal: No acute osseous pathology. IMPRESSION: No acute cardiopulmonary disease/process. [facility], , 04/25/2024 7:10 AM
[2024-04-25 07:21] LABS: Influenza A Detected (Not Detectd); Influenza B Not Detected (Not Detectd); RSV Not Detected (Not Detectd)
[2024-04-25] MEDS: HYDROmorphone 0.5 MG/0.5 ML SYRINGE IVP STA (07:39)
[2024-04-25] MEDS: SODIUM CHLORIDE 0.9% 500 ML 500 ML IV ONE (07:40)
[2024-04-25 08:49] VITALS: BP 99/60; PULSE 85; RESP 14; TEMP 99.9
== END 2024-04-25 08:49 | disposition home or self-care (01) ==
LOC: EC 05:15
DX: J10.1 Influenza due to other identified influenza virus with other respiratory manifestations (principal)
CPT/HCPCS: 36415; 93005; 85379; 83880; 80053; 83605; 84484; 85025; 85610; 85730; 87040; 87636; 71046; 99284; 96365; 96367; 96375 ×3; 96376; 96361; J0456; J0696; J1885; J1171; J2919